=== PATIENT | male | born 1975 | race African-American/Black ===

== ENCOUNTER 2017-03-12 15:19 | Emergency (ER) | payer MEDICAID ==
[~2017-03-12] VITALS: Ht 177.8 cm; Wt 91.3 kg
[2017-03-12] MEDS ORDERED: SODIUM CHLORIDE FLUSH 10ML SYR IVF ONE (16:00)
[2017-03-12 16:05] LABS: BLOOD UREA NITROGEN 12 mg/dL (7-18)
[2017-03-12 16:09] LABS: IS PT STATUS REG ER OR PRE ER? YES
[2017-03-12] MEDS ORDERED: OMNIPAQUE 350 MG/ML, 100ML BOTTLE ONE (17:04)
[2017-03-12 18:09] VITALS: BP 141/88
== END 2017-03-12 18:12 | disposition home or self-care (01) ==
LOC: ED 17:24
DX: R07.89 Other chest pain (principal); F19.10 Other psychoactive substance abuse, uncomplicated; R06.01 Orthopnea
CPT/HCPCS: 36415; 71275; 80048; 82040; 83880; 84484; 85025; 85610; 85730; 93005; 99285; Q9967